=== PATIENT | male | born 1980 | race African-American/Black ===

== ENCOUNTER 2018-11-02 13:28 | Emergency (ER) | payer MEDICAID, OTHER ==
[~2018-11-02] VITALS: Ht 177.8 cm; Wt 90.0 kg
[2018-11-02 14:25] VITALS: BP 125/76
== END 2018-11-02 17:14 | disposition left against medical advice (07) ==
LOC: ER 14:42
DX: M54.9 Dorsalgia, unspecified (principal); F17.200 Nicotine dependence, unspecified, uncomplicated; Z53.21 Procedure and treatment not carried out due to patient leaving prior to being seen by health care provider